=== PATIENT | male | born 1945 | race Caucasian/White ===

== ENCOUNTER → 2017-12-08 13:37 | Outpatient (CLI) | payer MEDICARE, OTHER, SELFPAY ==
--- NOTE | 2017-12-08 13:44 | RAD_ITS ---
STUDY: X-RAY - PELVIS AND BILATERAL HIPS REASON FOR EXAM: Male, 71 years old. Hip pain TECHNIQUE: Radiological exam, hip, bilateral, with pelvis when performed; 3-4 views COMPARISON: None. FINDINGS: There is a non-specific bowel gas pattern. Normal visualized soft tissue structures. Degenerative findings in the lumbar spine. Stool throughout the colon. Normal bilateral iliac wings, sacroiliac joints and visualized sacrum. Normal bilateral superior and inferior pubic rami. Normal pubic symphysis. Normal bilateral ischial tuberosities. Normal visualized right femoral head. There is osteoarthritic spur formation of the right acetabular rim. There is mild articular joint space narrowing of the right hip. Normal visualized left femoral head. There is osteoarthritic spur formation of the left acetabular rim. There is mild articular joint space narrowing of the left hip. RAD/Hips B/L min 2 views w/ Pelvis IMPRESSION: Degenerative findings of the hips. Electronically Signed: Ozzy Daugherty MD at 18:29 EST , Service support ,
== END ==
PROVIDERS: Family Provider Internal Medicine; PCP Internal Medicine; Visit Provider Anesthesiology Pain Medicine
DX: M25.552 Pain in left hip (principal); M25.551 Pain in right hip
CPT/HCPCS: 73521

== ENCOUNTER 2018-04-10 13:12 | Emergency (ER) | payer MEDICARE, OTHER, SELFPAY ==
[2018-04-10 13:15] VITALS: BP 155/91; PULSE 93; RESP 17; TEMP 36.8; O2SAT 96; BMI 38.4
--- NOTE | 2018-04-10 14:19 | EKG12_ITS ---
Test Reason : WEAKNESS Blood Pressure : / mmHG Vent. Rate : 093 BPM Atrial Rate : 093 BPM P-R Int : 172 ms QRS Dur : 082 ms QT Int : 338 ms P-R-T Axes : 058 034 019 degrees QTc Int : 420 ms Normal sinus rhythm Normal ECG Confirmed by CARMEN ALLEN, LOVE ([id number]), advertising editor JOHNATHON REYNA ([id number]) on 04/12/2018 3:34:42 PM Referred By: VICENTE Confirmed By:LOVE MORALES MD
--- NOTE | 2018-04-10 14:25 | RAD_ITS ---
STUDY: X-RAY CHEST REASON FOR EXAM: Male, 72 years old. Increased weakness and fatigue for 3 days. TECHNIQUE: Single AP portable view of the chest. COMPARISON: Comparison is made with prior study dated June 01, 2015. FINDINGS: EKG electrodes are seen. The lungs are clear and expanded. There is no demonstrated pleural abnormality. There is moderate cardiac enlargement. Normal mediastinum and hedy. Normal visualized pulmonary arteries. There is atherosclerotic tortuosity of the aortic arch and descending thoracic aorta. There are diffuse degenerative changes of the visualized thoracic spine. Normal visualized ribs, clavicles, and shoulders. There is no demonstrated abnormality of the visualized soft tissue structures of the upper abdomen. RAD/Chest 1 View (Portable) IMPRESSION: Cardiomegaly. Electronically Signed: Suman Evans MD at 14:53 EDT Tel [phone], Service support ,
[2018-04-10 14:41] LABS: Absolute Neutrophil Count 12.3 X10^3/uL (2.0-7.7); Basophil# 0.04 X10^3/uL; Basophil% 0.3 % (0-1); Eosinophil# 0.33 X10^3/uL; Eosinophils% 2.1 % (0-5); Hematocrit 41.1 % (40-54); Lymphocyte % 8.9 % (19-41); Mean Corp Hgb Conc 34.1 g/gl (32-36); Mean Corpuscular Volume 94.1 fL (80-94); Mean Platelet Vol. 10.9 fl (6.2-12.0); Monocyte# 1.58 X10^3/uL; Monocyte% 10.1 % (0-10); Neutrophil # 12.26 X10^3/uL (2.7-7.7); Neutrophil % 78.3 % (47-70); Platelet Count 237 K/mm3 (150-450); RBC Distribution Width CV 12.2 % (11.6-14.6); RBC Distribution Width SD 41.6 fl (35.1-43.9); Red Blood Count 4.37 M/mm3 (4.6-6.2); White Blood Count 15.7 K/mm3 (4.4-11.0)
[2018-04-10 14:42] LABS: Differential Indicated SCAN CRITERIA MET; POSITIVE COUNT NO; POSITIVE DIFFERENTIAL YES; POSITIVE MORPHOLOGY NO
[2018-04-10] MEDS: 0.9% Normal Saline 1,000 ML 1000 ML IV (14:46)
[2018-04-10 14:51] LABS: Anion Gap 5 (5-15); BUN 18 mg/dL (7-18); BUN/Creat Ratio 17.3 RATIO (10-20); Calcium,Total 8.5 mg/dL (8.5-10.1); Chloride 103 mmol/L (98-107); Creatinine, Serum 1.04 mg/dL (0.70-1.30); EST Glomerular Filtration Rate 75 mL/min (>60); Est Glom Filt Rate - Afr Amer 91 mL/min (>60); Estimated Creatinine Clearance 66.09 ml/min; Glucose 102 mg/dL (74-106); Potassium 3.8 mmol/L (3.5-5.1); Sodium Level 134 mmol/L (136-145)
[2018-04-10 15:20] VITALS: BP 161/86; PULSE 92; RESP 23; O2SAT 96
--- NOTE | 2018-04-10 15:30 | RAD_ITS ---
STUDY: X-RAY CHEST REASON FOR EXAM: Male, 72 years old. 3 day history of weakness. TECHNIQUE: Lateral view. COMPARISON: Comparison is made with prior study done earlier today. FINDINGS: Mild increased markings in the lingular segment of the left upper lobe. There is no demonstrated pleural abnormality. Cardiomegaly. There are degenerative changes of the visualized thoracic spine. Normal visualized ribs, clavicles, and shoulders. RAD/Chest 1 View (Portable) IMPRESSION: Increased markings in the lingular segment of the left upper lobe. Follow-up is recommended. Electronically Signed: Suman Evans MD at 15:47 EDT Tel [phone], Service support ,
[2018-04-10 15:48] LABS: Squamous Epithelial Cells - UA 0 SEEN /hpf (0-5)
[2018-04-10 15:52] LABS: Color, Urine Yellow (Yellow); Glucose, Dipstick Normal (Normal); Ketone-Dipstick 5 mg/dl (Negative); Leukocyte Esterase-Dipstick 25 /ul (Negative); Nitrite-Dipstick Negative (Negative); Occult Blood-Urine 10 /ul (Negative); Protein-Dipstick 30 mg/dl (Negative); Urine Bilirubin Dipstick Negative (Negative); Urine Clarity Clear (Clear); Urine Urobilinogen 4 mg/dl (Normal)
[2018-04-10 16:07] LABS: Bacteria 1+ /hpf (None Seen); Mucous, Urine 2+ /hpf (<or=2+); Red Blood Cells-Urine 0-5 SEEN /hpf (0-5); White Blood Cells 0-5 SEEN /hpf (0-5)
[2018-04-10 16:11] VITALS: BP 150/87; PULSE 90; RESP 19; O2SAT 96
--- NOTE | 2018-04-10 16:19 | ED.DCSUM_ITS ---
- ER Visit Summary Date of Service: 04/10/18 Chief Complaint: Weakness History of Present Illness: The patient is a [address] Jovel. Patient reports that over the past 2 days that he has had gradually increasing weakness. He reports he has a nonproductive cough. No fever or chills. He did have a night sweats 2 nights ago. Ports that he has felt mildly short of breath for the past 3 days. It is moderate with ambulation. He is not having shortness of breath now. He denies any wheezing or chest pain. Patient reports he has lower abdominal pain during the active sitting up only. He denies any other abdominal pain. No nausea, vomiting, or diarrhea. No dysuria or frequency. He reports that he has part of one when asked about a headache. Physical Examination: Vitals: Stable. Afebrile. General: Well-nourished and well-developed. Head: Normocephalic atraumatic. Neck: Supple, no lymphadenopathy. No JVD. Nontender. Cardiovascular: Regular rate and rhythm. No murmurs. Respiratory: No respiratory distress. Clear to auscultation bilaterally. Abdominal: Soft, nontender, nondistended, normal bowel sounds. No guarding, rebound, or peritoneal signs. Back: Nontender. Extremities: Nontender, no edema. Skin: Normal color, no rash. Neurologic: Alert and oriented ?3. Cranial nerves II through XII are intact. Normal strength and sensation. Psych: Normal affect. Test Results: EKG is sinus at 93 with T-wave inversion in lead III. This is unchanged from 2015. Troponin is negative. Chem-7 is more for sodium 134. CBC is more for white count of 15.7 with 78 segmented neutrophils and 9 lymphocytes. Chest x-ray shows increased markings only irregular segment of the left upper lobe. Urinalysis is negative. Emergency Department Course and Treatment: Patient is resting comfortably and would like to go home. He is treated with Levaquin p.o. Treatment Plan: Patient will be discharged on Levaquin. Instructed to follow- up with Dr. Jovel in 5-7 days for repeat exam. Return to the emergency department for any worsening symptoms. Disposition: To home in improved and stable condition. Impression: 1. Pneumonia, community-acquired. This note was generated with [employer] software. It may contain incorrect words, spelling, and punctuation that were not noted in review of the chart prior to signing ED Disposition - Plan for ED Patient: Chief Complaint: Weakness Instructions: ED Pneumonia Adult Prescriptions: Levofloxacin [Levaquin] 750 mg PO DAILY #6 tablet Referrals: Megan Jovel MD [Primary Care Provider] - 5-7 Days
[2018-04-10] MEDS: levoFLOXacin 750 MG Tablet PO (16:48)
[2018-04-10 16:54] VITALS: BP 158/87; PULSE 90; RESP 24; O2SAT 95
[2018-04-11 09:24] LABS: Pathologist Review Reviewed
== END 2018-04-10 16:55 | disposition home or self-care (01) ==
LOC: ED 14:50
PROVIDERS: Emergency Provider Emergency Medicine; Family Provider Internal Medicine; PCP Internal Medicine
DX: J18.9 Pneumonia, unspecified organism (principal); R51 Headache; R10.30 Lower abdominal pain, unspecified; I10 Essential (primary) hypertension; M54.9 Dorsalgia, unspecified; G89.29 Other chronic pain; Z79.82 Long term (current) use of aspirin; Z79.899 Other long term (current) drug therapy
CPT/HCPCS: 71045; 80048; 81001; 84484; 85025; 93005; 96360; 96361; 99285; J7030

== ENCOUNTER 2018-05-05 11:06 | Emergency (ER) | payer MEDICARE, OTHER, SELFPAY ==
[2018-05-05 11:07] VITALS: BP 145/25; PULSE 87; RESP 24; TEMP 36.8; O2SAT 98
--- NOTE | 2018-05-05 11:46 | EKG12_ITS ---
Test Reason : Blood Pressure : / mmHG Vent. Rate : 079 BPM Atrial Rate : 079 BPM P-R Int : 170 ms QRS Dur : 094 ms QT Int : 364 ms P-R-T Axes : 044 028 030 degrees QTc Int : 417 ms Normal sinus rhythm Normal ECG Confirmed by LOVE MORALES MD ([id number]), assignment editor JOHNATHON REYNA ([id number]) on 05/09/2018 1:51:31 PM Referred By: CINTHYA Confirmed By:LOVE MORALES MD
--- NOTE | 2018-05-05 11:47 | RAD_ITS ---
STUDY: X-RAY - PELVIS AND LEFT HIP REASON FOR EXAM: Male, 72 years old. Increasing left hip pain following a recent fall. TECHNIQUE: Radiological exam, hip, unilateral, with pelvis when performed; 2 or 3 views. COMPARISON: Comparison is made to prior examination dated December 08, 2017. FINDINGS: There is a non-specific bowel gas pattern. Normal visualized soft tissue structures. There is narrowing with cortical sclerosis and osteophyte formation of the sacroiliac joint consistent with degenerative osteoarthritic changes. Normal bilateral superior and inferior pubic rami. Normal pubic symphysis. Normal bilateral ischial tuberosities. Normal visualized femoral head. There is osteoarthritic spur formation of the acetabular rim. There is moderate articular joint space narrowing of the hip. RAD/Hip 2-3 Views with Pelvis IMPRESSION: Degenerative changes. No fracture is seen. Electronically Signed: Suman Evans MD at 12:48 EDT Tel [phone], Service support ,
--- NOTE | 2018-05-05 11:48 | ED.VISSUMM ---
- ER Visit Summary Date of Service: 05/05/18 Chief Complaint: Shortness of breath and recent fall with left hip pain History of Present Illness: The patient is a 72 M past medical history of osteoarthritis, depression hypertension and high cholesterol. Patient has no history of coronary disease or underlying lung disease. states for about a year he has exertional shortness of breath. No exertional chest pain. Patient states because he has bad arthritis in both hips and knees when he walks he is more pain and he feels short of breath because of that. He said if he does not exert himself or in pain is not have any shortness of breath. He denies any type of chest pain. No history of DVT or PE. No travel, surgery or mobilization. No hemoptysis. No calf pain or swelling. He has no underlying cardiac history he does not believe he is ever had a cardiac cath and cannot remember any stress test. He is a non-smoker. He states his symptoms have not changed or gotten worse over the last year. Also recently he fell down steps within the last week. Injuring his left hip. Said he had outpatient x-rays done at the [facility] which were reportedly negative. States she is having continued left hip pain is not getting any better. Is able to ambulate. Denies any LOC head or neck injury with the fall. Physical Examination: Vital signs are stable afebrile. Pulse ox 90% on room air no signs of hypoxia. H EENT exam unremarkable. No signs of traumaor skull. Neck nontender. Trachea midline. No JVD. Lungs clear to auscultation bilaterally. Heart regular rate and rhythm no murmur. Chest wall nontender. Abdomen is soft and nontender. Normal bowel sounds no peritoneal signs. Patient is moving all 4 extremities. They are neurovascularly intact. There are no deformities. Neurologically he is awake and alert with no focal motor or sensory deficits. Lower extremities have no calf tenderness or edema. Back exam is nontender. Specifically left hip has mild tenderness posterior laterally to deep palpation. There is no deformity. No external rotation or shortening. He has normal range of motion Test Results: An age [age]. Electrolytes unremarkable. Normal creatinine and gap. Troponin normal. EKG sinus rhythm rate is 79 with no unchanged from EKG from March. Chest x-ray borderline cardiomegaly otherwise no acute process. Read both by myself the radiologist. Pelvis and left hip x-ray showed no fracture on 3 views. Again read both by myself the radiologist. Emergency Department Course and Treatment: Patient will undergo a cardiac workup even though clinically the dyspnea may be secondary to pain when he ambulates. Also x-rays of his pelvis and hip. Treatment Plan: Repeat exam patient is doing well at 1310. Exam is unchanged. He and are comfortable with him being discharged home. We did discuss the possibility of an outpatient stress test. Disposition: Discharge Impression: Acute exertional dyspnea of uncertain etiology. Acute fall with left hip contusion This note was generated with [employer] dictation software. It may contain incorrect words, spelling, and punctuation that were not noted in review of the chart prior to signing ED Disposition - Plan for ED Patient: Chief Complaint: Shortness of Breath Referrals: Megan Jovel MD [Primary Care Provider] -
[2018-05-05 12:04] LABS: Absolute Lymphocyte Count 0.98 X10^3/ul (0.83-4.51); Absolute Neutrophil Count 10.4 X10^3/uL (2.0-7.7); Basophil# 0.01 X10^3/uL; Basophil% 0.1 % (0-1); Hematocrit 43.1 % (40-54); Hemoglobin 14.8 g/dl (13.0-16.5); Lymphocyte # 0.98 X10^3/ul (4.0); Lymphocyte % 8.2 % (19-41); Mean Corp Hgb Conc 34.3 g/gl (32-36); Mean Corpuscular Volume 93.1 fL (80-94); Mean Platelet Vol. 10.3 fl (6.2-12.0); Monocyte# 0.54 X10^3/uL; Monocyte% 4.5 % (0-10); Neutrophil # 10.39 X10^3/uL (2.7-7.7); Neutrophil % 87.1 % (47-70); Platelet Count 207 K/mm3 (150-450); RBC Distribution Width CV 12.2 % (11.6-14.6); RBC Distribution Width SD 41.2 fl (35.1-43.9); Red Blood Count 4.63 M/mm3 (4.6-6.2); White Blood Count 11.9 K/mm3 (4.4-11.0)
[2018-05-05 12:19] LABS: Anion Gap 8 (5-15); BUN 25 mg/dL (7-18); BUN/Creat Ratio 21.2 RATIO (10-20); Calcium,Total 8.9 mg/dL (8.5-10.1); Chloride 108 mmol/L (98-107); Creatinine, Serum 1.18 mg/dL (0.70-1.30); EST Glomerular Filtration Rate 65 mL/min (>60); Est Glom Filt Rate - Afr Amer 78 mL/min (>60); Estimated Creatinine Clearance 96.79 ml/min; Glucose 106 mg/dL (74-106); Potassium 4.1 mmol/L (3.5-5.1); Sodium Level 141 mmol/L (136-145)
[2018-05-05 12:24] LABS: POSITIVE COUNT NO; POSITIVE DIFFERENTIAL NO; POSITIVE MORPHOLOGY NO
--- NOTE | 2018-05-05 12:25 | RAD_ITS ---
STUDY: X-RAY CHEST REASON FOR EXAM: Male, 72 years old. Chest pain. TECHNIQUE: Single AP portable view of the chest. COMPARISON: Comparison is made with prior study dated April 10, 2018. FINDINGS: EKG electrodes are seen. The lungs are clear and expanded. Mild elevation of the right hemidiaphragm. There is no demonstrated pleural abnormality. There is moderate cardiac enlargement. Normal mediastinum and hedy. Normal visualized pulmonary arteries. There is atherosclerotic tortuosity of the aortic arch and descending thoracic aorta. There are degenerative changes of the visualized thoracic spine. Normal visualized ribs, clavicles, and shoulders. There is no demonstrated abnormality of the visualized soft tissue structures of the upper abdomen. RAD/Chest 1 View (Portable) IMPRESSION: Cardiomegaly. The lungs are clear. Electronically Signed: Suman Evans MD at 12:45 EDT Tel [phone], Service support ,
[2018-05-05] MEDS: HYDROcodone Bitartrate/Apap 5/325 Tablet PO (12:45)
--- NOTE | 2018-05-05 13:11 | ED.DEP ---
ED Disposition - Plan for ED Patient: Disposition: Home or Assisted Living Chief Complaint: Shortness of Breath Instructions: ED Contusion Hip, ED Dyspnea Shortness of Breath Referrals: Megan Jovel MD [Primary Care Provider] - As soon as possible Additional Instructions: Call follow-up with your doctor for further evaluation of the intermittent exertional shortness of breath. Today on your labs are basically unremarkable. Your hip and pelvis x-ray shows no fracture. If the pain continues follow-up with the primary care physician they can get a CAT scan or MRI of your hip but at this time there are no signs of a fracture.
[2018-05-05 13:16] VITALS: PULSE 70; RESP 16; O2SAT 98
[2018-05-05 13:24] VITALS: PULSE 75; RESP 14; O2SAT 97
== END 2018-05-05 13:32 | disposition home or self-care (01) ==
PROVIDERS: Emergency Provider Emergency Medicine; Family Provider Internal Medicine; PCP Internal Medicine
DX: R06.00 Dyspnea, unspecified (principal); S70.02XA Contusion of left hip, initial encounter; W10.9XXA Fall (on) (from) unspecified stairs and steps, initial encounter; Y93.9 Activity, unspecified; Y92.9 Unspecified place or not applicable; Y99.9 Unspecified external cause status; M16.0 Bilateral primary osteoarthritis of hip; M17.0 Bilateral primary osteoarthritis of knee; I10 Essential (primary) hypertension; E78.00 Pure hypercholesterolemia, unspecified; F32.9 Major depressive disorder, single episode, unspecified; Z79.82 Long term (current) use of aspirin; Z79.52 Long term (current) use of systemic steroids; Z79.899 Other long term (current) drug therapy
CPT/HCPCS: 71045; 73502; 80048; 84484; 85025; 93005; 99285; A4216

== ENCOUNTER → 2018-06-07 06:36 | Outpatient (CLI) | payer MEDICARE, OTHER, SELFPAY | PROVIDERS: Family Provider Internal Medicine; PCP Internal Medicine; Visit Provider Anesthesiology Pain Medicine | DX: M54.9 Dorsalgia, unspecified (principal); M79.606 Pain in leg, unspecified | CPT/HCPCS: 72148 ==

== ENCOUNTER → 2019-12-24 13:05 | Outpatient (CLI) | payer MEDICARE, OTHER, SELFPAY ==
--- NOTE | 2019-12-24 13:12 | MRI_ITS ---
STUDY: MRI LUMBAR SPINE WITHOUT CONTRAST REASON FOR EXAM: Male, 74 years old. Chronic back and left leg pain. TECHNIQUE: Standardized fat and water weighted pulse sequences were obtained in the sagittal and axial planes. COMPARISON: MRI LUMBAR SPINE-June 07, 2018 FINDINGS: Vertebrae, Alignment and Curvature Vertebrae: There is anterior endplate spondylosis at the T11-12, T12-L1, L3-4 and L4-5 levels. Alignment: There is mild retrolisthesis of the L3 vertebra in relationship to the L4 vertebra. There is minimal anterolisthesis of the L4 vertebra relationship to the L5 vertebra, further discussed below. Curvature: Normal lordosis. No scoliosis. Thoracic Cord (visualized distal) / Conus Medullaris Normal. Terminates at the at the superior endplate of the L1 vertebra. Disc Space Levels N.B.: Normal level statement indicates: Normal endplates; disc height, signal and morphology; facet joints; central canal, lateral recesses, and intervertebral neuroformina. T11-12: (Imaged only in the sagittal plane). There is disc desiccation, preservation of the disc height with bridging anterior endplate spondylotic spur formation. Normal central canal and intervertebral neural foramina. T12-L1: (Imaged only in the sagittal plane). There is anterior endplate spondylosis. Normal disc hydration and height without disc displacement. Normal central canal and intervertebral neural foramina. L1-L2: Normal disc hydration and height with anterior endplate spondylosis. There is minimal facet arthrosis. Normal central canal and intervertebral neural foramina. L2-L3: Normal. L3-L4: There is disc desiccation, moderate to severe loss of the disc height posteriorly, with a 5 mm L3 retrolisthesis in relationship to the L4 vertebra. There has been partial autolysis of the previously demonstrated large left-sided foraminal to extraforaminal disc extrusion, demonstrated on the prior examination of June 07, 2018. There is however a a small residual posterior lateral to foraminal disc extrusion, which is significantly smaller than previously demonstrated disc herniation. The residual subligamentous extrusion measures approximately 4 mm in its AP dimension (axial T2 series 5, image 12), extending 5 mm along the inferior margin of the L3 vertebra within the intervertebral neural foramina. There is mild impingement upon the exiting left L3 nerve root (sagittal T2 series 2, images 3-4. There is bilateral facet arthrosis with facet hypertrophy and with infolding of ligamentum flavum producing a severe left subarticular lateral recess stenosis with neural impingement upon the descending left L4 nerve root and with a moderate central canal stenosis. There is central clumping of the cauda equina . The residual AP diameter of the central canal measures 8 mm. There is right-sided foraminal annular bulging producing retrodiscal foraminal narrowing but without neural impingement. L4-L5: There is disc desiccation, preservation disc height, severe bilateral facet arthrosis with osseous and ligamentous hypertrophy and with a 3 mm retrolisthesis of the L4 vertebra with circumferential annular bulging. The combined processes have produced mild bilateral foraminal and severe left subarticular lateral recess and moderate central canal stenoses (axial T2 series 5, image 7), producing neural impingement upon the descending left L5 nerve root. The AP diameter of the central canal measures 6 mm. L5-S1: Normal disc hydration and height with minimal annular bulging. There is moderate bilateral facet arthrosis (right greater than left), but without definitive neural impingement. Sacral Alae: Normal. Retroperitoneum and Paraspinal Structures Kidneys: Partially imaged with no demonstrated abnormality. Aorta: Normal. Inferior Vena Cava: Normal. Lymph Nodes: None visualized. Muscles (Paraspinal): Normal. MRI/Spine Lumbar (Routine) IMPRESSION: 1. T11-12, T12-L1 anterior endplate spondylosis. 2. Significant autolysis of the previously demonstrated left-sided L3-4 foraminal disc extrusion, however there is a residual smaller disc extrusion, combined with bilateral facet arthroses, which is producing mild impingement upon the exiting left L3 nerve root with severe left subarticular lateral recess and moderate central canal stenosis with neural impingement upon the descending left L4 nerve root. 3. L4 minimal retrolisthesis with severe bilateral facet arthrosis producing moderate central canal and severe left subarticular lateral recess stenosis with neural impingement upon the descending left L5 nerve root. Electronically Signed: Bo Strong DO at 15:18 EST Tel , Service support ,
== END ==
PROVIDERS: PCP Internal Medicine; Referring Provider Anesthesiology Pain Medicine; Visit Provider Anesthesiology Pain Medicine
DX: M54.9 Dorsalgia, unspecified (principal); M79.606 Pain in leg, unspecified
CPT/HCPCS: 72148

== ENCOUNTER → 2020-06-03 09:29 | Outpatient (CLI) | payer MEDICARE, OTHER, SELFPAY ==
--- NOTE | 2020-06-03 09:30 | RAD_ITS ---
STUDY: X-RAY - LUMBAR SPINE REASON FOR EXAM: Male, 74 years old. LBP TECHNIQUE: 4 view(s) of the lumbar spine were obtained including flexion and extension views. COMPARISON: None FINDINGS: Normal lumbar lordosis. There is no substantial scoliosis. Minimal anterior listhesis of L4 on L5. There is minimal reduction on the extension views. There is multilevel endplate spondylosis of the lumbar vertebrae. There is multi-level degenerative disc disease with multi-level disc space narrowing. Facet joint osteoarthritis. The soft tissue structures are unremarkable. RAD/L/S Spine Min 4 Views IMPRESSION: Degenerative changes of the spine, as detailed above. Minimal anterior listhesis of L4 on L5. Minimal reduction on the extension views. Electronically Signed: Suman Evans, at 11:06 EDT , Service support ,
== END ==
PROVIDERS: PCP Internal Medicine; Referring Provider Orthopaedic Surgery; Visit Provider Orthopaedic Surgery
DX: M54.5 Low back pain (principal)
CPT/HCPCS: 72110

== ENCOUNTER 2020-08-05 14:30 | Outpatient (RCR) | payer MEDICARE, OTHER, SELFPAY ==
--- NOTE | 2020-07-08 15:31 | HP.PTEVAL_ITS ---
Patient's Visit Information ROSS BOLIVAR is a 74 year old M referred to Physical Therapy by Dr. Shaista Lawler MD with a diagnosis of BACK PAIN. Date of Evaluation: 07/08/20 Physical Therapist: Brad Johnson, PT, Cert MDT, OCS - Visit Plan Frequency: 2x /Week Duration: 8WEEKS Plan: PT INTERVETIONS AQUATIC THERAPY FOR DLS ,LE FLEXABLITY/STRENGTHENING,POSTURAL EX'S - Subjective This 74 y/o male presents to physical therapy with back pain.Patient has had back pain many years 25 years. No specific reason. Patient has h/o receiving epidural injections by pain management for past 10 years . Last injection 3 weeks which didnt help. Seen DR Lawler recommended PT . MRI showed extrusion L3-4 with severe DDD and anteriolothesis,L5-S1. Patient has seen chiropractor many years. Patient has had x-rays. Patient had fall 2 years ago. Location pain sym mtrical lumbar and occassional anterior thigh.C/O occasional parathesia/tingling left leg. Coughing/sneezing -. Bowel/bladder-.Aggraveting factors walking 2mins,standing ,bending ,lifing . Alleviating factors sitting. 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 Patient symptoms affects QOL. SOCAIL: . VOCATION: retired - Pain Bilateral Pain Intensity (Out of 10): 3 Pain Intensity Range: 10 Comment: worse 10/10 - Objective POSTURE: mild foward posture. GAIT: reciprocal pattern antalgic gait slow paola. SYMMTTRIES: align. NEURO: denies parathesia/tingling,reflexes L3-4,L4-5,L5-S 1/3. FLEXABLITY: HAMS mild tight. MMT: quads/hams 4/5,hip flexion ,abduction 4-/5,ankle 4/5. LUMBAR ROM: flexion mod loss,extension mod/severe loss,side glides mod loss - Special Tests L/S Slump test left side: Negative L/S Slump test right side: Negative L/S Left Straight Leg Raise: Negative L/S Right Straight Leg Raise: Negative - Goals Goal 1:: Patient to be I with Aquatic therapy Goal Time Frame: 6-8 Weeks Goal 2:: Patient decrease lumbar pain by 40% or > to improve gait and function. Goal Time Frame: 6-8 Weeks Goal 3:: Patient to improve lumbar ROM for function of recovery Goal Time Frame: 6-8 Weeks Goal 4:: Patient to improve back owestry score by 5 points or > to improve QOL. Goal Time Frame: 6-8 Weeks Goal 5:: Pateint able to walk further distances > than 5 mins Goal Time Frame: 6-8 Weeks - Rehabilitation Potential Physical Therapy Diagnosis: Patient has back pain with severe stenosis and larger extrustion and DDD L3-4 with poor ROM ,pain ,weakness inablity to walk > than 2 mins without having severe back pain thus from skilled PT Rehabilitation Potential: Fair - Anticipated Interventions Patient/Client Instruction: Educate patient on: Condition, Plan of Care For the Purpose of:: To decrease pain, To increase ROM, To improve muscle performance and motor function, To increase tolerance to activity/condition/position, To improve performance and independence with ADL's, To improve ability of physical actions for home/community/work/leisure, To improve gait and locomotor functions, To improve health of tissue, To decrease soft tissue restriction, To increase flexibility/ROM, To improve endurance, To improve ability to perform tasks related to life management Therapeutic Exercise to Include: Strength training, Body mechanics, Postural training, Flexibilty training, In an aquatic setting, Active ROM, Dynamic Lumbar Stabilization For the Purpose of:: To decrease pain, To increase ROM, To improve muscle performance and motor function, To improve ability to perform ADL's, To increase tolerance to activity/condition/position, To decrease level of supervision to perform tasks, To improve ability of physical actions for home/community/work/leisure, To decrease soft tissue restriction, To increase flexibility/ROM Thank you for the opportunity to evaluate your patient. For Medicare and Medicare HMO plans, please review the plan of care and approve it. It will need to be FAXED BACK to us at [phone] for Medicare purposes. For Medicare only, by signing this I certify the plan of care. Please let me know if there are questions or concerns regarding this plan of care. Physician Signature: Date:
--- NOTE | 2020-11-14 12:36 | HP.PTDCNRP_ITS ---
ROSS BOLIVAR was seen in my office for initial evaluation on 07/08/20. The following Plan of Care was established for this patient: Initial Frequency: 2x /Week Initial Duration: 8WEEKS Patient/Client Instruction: Educate patient on: Condition, Plan of Care For the Purpose of:: To decrease pain, To increase ROM, To improve muscle performance and motor function, To increase tolerance to activity/condition/position, To improve performance and independence with ADL's, To improve ability of physical actions for home/community/work/leisure, To improve gait and locomotor functions, To improve health of tissue, To decrease soft tissue restriction, To increase flexibility/ROM, To improve endurance, To improve ability to perform tasks related to life management Therapeutic Exercise to Include: Strength training, Body mechanics, Postural training, Flexibilty training, In an aquatic setting, Active ROM, Dynamic Lumbar Stabilization For the Purpose of:: To decrease pain, To increase ROM, To improve muscle performance and motor function, To improve ability to perform ADL's, To increase tolerance to activity/condition/position, To decrease level of supervision to perform tasks, To improve ability of physical actions for home/co mmunity/work/leisure, To decrease soft tissue restriction, To increase flexibility/ROM This patient was last seen in our office . Pertinent comments regarding their Physical therapy will appear below: Patient was seen for PT for Aquatic Therapy for back pain for 5 visits focusing on DLS ,postural ex's and flexablity. At this point I will be discontinuing this patient from physical therapy. I would be happy to see this patient again in the future if found appropriate by the physician. Thank you! Brad Johnson, PT, Cert MDT, OCS
== END 2020-08-05 19:00 | disposition home or self-care (01) ==
LOC: PT 14:30
PROVIDERS: PCP Internal Medicine; Referring Provider Orthopaedic Surgery; Visit Provider Orthopaedic Surgery
DX: M54.9 Dorsalgia, unspecified (principal)
CPT/HCPCS: 97113; 97162

== ENCOUNTER → 2021-05-19 12:22 | Outpatient (CLI) | payer MEDICARE, OTHER, SELFPAY ==
--- NOTE | 2021-05-19 12:23 | MRI_ITS ---
STUDY: MRI LUMBAR SPINE WITH AND WITHOUT CONTRAST REASON FOR EXAM: Male, 75 years old. LBP, bilat hip pain and leg pain LEFT and gt; RIGHT TECHNIQUE: Standardized fat and water weighted pulse sequences were obtained in the sagittal and axial planes. IV 24ml Dotarem was administered for the contrast portion of the examination. COMPARISON: MRI lumbar spine without contrast 12/24/2019. FINDINGS: T11-T12: (Sagittal only). Normal endplates. Mild disc space height narrowing. No ventral extradural defect. Normal central canal and bilateral intervertebral neural foramina. T12-L1: (Sagittal only). Normal endplates. Normal disc height, hydration and morphology. No ventral extra dural defect. Normal central canal and bilateral intervertebral neural foramina. Normal lumbar lordosis. There is no substantial scoliosis. Normal conus medullaris that terminates at the T12-L1 disc level. L1-2: Normal endplates. Normal disc height, hydration and morphology. Normal bilateral facet joints. Normal central canal and bilateral lateral recesses. Normal bilateral intervertebral neural foramina. L2-3: Normal endplates. Normal disc height, hydration and morphology. Normal bilateral facet joints. Normal central canal and bilateral lateral recesses. Normal bilateral intervertebral neural foramina. L3-4: Normal endplates. Mild disc space height narrowing. Minimal degenerative retrolisthesis of L3 on L4. Moderate central canal stenosis diameter of 7 mm. This is unchanged. Normal bilateral lateral recesses. Mild to moderate bilateral degenerative facet hypertrophy. Mild stenosis of the left intervertebral neural foramen. Normal right intervertebral neural foramen. L4-5: Normal endplates. Normal disc height, hydration and pronounced central canal stenosis with an AP canal diameter of 5.5 mm. This is unchanged. Moderate pronounced left degenerative facet hypertrophy is unchanged. Mild right degenerative facet hypertrophy is unchanged. Mild stenosis of the bilateral intervertebral neural foramina are unchanged. L5-S1: Normal endplates. Normal disc height, hydration and morphology. Normal central canal surrounded by epidural lipomatosis. This is a tapered termination towards S2. Normal bilateral lateral recesses. Mild right degenerative facet arthropathy. Normal left facet joint. Normal bilateral intervertebral neural foramina. Normal visualized sacral ala. Normal visualized paraspinous soft tissue structures. There is mild contrast enhancement of the left L4-L5 degenerative inflammatory arthropathy. No intradural or extradural enhancing lesions. MRI/Spine Lumbar W/WO Contrast IMPRESSION: 1. Moderately pronounced central canal stenosis at L4-L5 disc level with an AP canal diameter of 5.5 mm is unchanged but there is enhancing moderately pronounced left inflammatory degenerative facet arthropathy. 2. Moderate central canal stenosis at L3-L4 disc level with an AP canal diameter of 7 mm, minimal degenerative retrolisthesis of L3 on L4, mild to moderate bilateral degenerative facet hypertrophy and mild stenosis of the left intervertebral neural foramen. This level is unchanged. 3. No MRI evidence of lumbar extruded disc fragment. 4. Electronically Signed: Pillo Pelaez MD at 13:10 EDT , Service support ,
[2021-05-19 13:06] LABS: CREATININE FINGERSTICK 1.3 mg/dL (0.70-1.30)
== END ==
PROVIDERS: PCP Nurse Practitioner Primary Care; Referring Provider Orthopaedic Surgery; Visit Provider Orthopaedic Surgery
DX: Z01.812 Encounter for preprocedural laboratory examination (principal); M54.5 Low back pain
CPT/HCPCS: 72158; A9575

== ENCOUNTER 2021-06-12 13:31 | Observation (INO) | payer MEDICARE, OTHER, SELFPAY ==
--- NOTE | 2021-06-09 13:29 | EKG12_ITS ---
Test Reason : PRE OP Blood Pressure : / mmHG Vent. Rate : 081 BPM Atrial Rate : 081 BPM P-R Int : 160 ms QRS Dur : 078 ms QT Int : 340 ms P-R-T Axes : 029 017 021 degrees QTc Int : 394 ms Normal sinus rhythm Low voltage QRS Confirmed by JAYNE ALLEN, ABRAHAM ([id number]), legal editor DEXTER AGUIRRE ([id number]) on 06/10/2021 10:10:46 AM Referred By: Uday Cook Confirmed By:ABRAHAM GODOY MD
[2021-06-09 14:24] LABS: Absolute Lymphocyte Count 1.83 X10^3/uL (0.83-4.51); Absolute Neutrophil Count 3.8 X10^3/uL (2.0-7.7); Basophil# 0.09 X10^3/uL; Basophil% 1.3 % (0-1); Eosinophil# 0.26 X10^3/uL; Eosinophils% 3.9 % (0-5); Hematocrit 41.2 % (40-54); Hemoglobin 13.9 g/dL (13.0-16.5); Lymphocyte # 1.83 X10^3/ul (0.83-4.51); Lymphocyte % 27.4 % (19-41); Mean Corp Hgb Conc 33.7 g/dL (32-36); Mean Corpuscular Hgb 32.1 pg (27.0-32.0); Mean Corpuscular Volume 95.2 fL (80-94); Mean Platelet Vol. 10.5 fl (6.2-12.0); Monocyte# 0.65 X10^3/uL; Monocyte% 9.7 % (0-10); NRBC Flagged by Analyzer 0 % (0-5); Neutrophil # 3.82 X10^3/uL (2.7-7.7); Neutrophil % 57.4 % (47-70); Platelet Count 207 K/mm3 (150-450); RBC Distribution Width CV 11.6 % (11.6-14.6); RBC Distribution Width SD 40.3 fl (35.1-43.9); Red Blood Count 4.33 M/mm3 (4.6-6.2); White Blood Count 6.7 K/mm3 (4.4-11.0)
[2021-06-09 14:34] LABS: Partial Thromboplast Time 27.4 Seconds (24.1-36.2); Prothrombin Time (Protime)PT. 12.6 SECONDS (11.7-14.9)
[2021-06-09 14:48] LABS: Anion Gap 5 (5-15); BUN 24 mg/dL (7-18); BUN/Creat Ratio 14.5 RATIO (10-20); Calcium,Total 8.9 mg/dL (8.5-10.1); Chloride 109 mmol/L (98-107); Creatinine, Serum 1.66 mg/dL (0.70-1.30); EST Glomerular Filtration Rate 43 mL/min (>60); Est Glom Filt Rate - Afr Amer 52 mL/min (>60); Glucose 116 mg/dL (74-106); Potassium 3.9 mmol/L (3.5-5.1); Sodium Level 139 mmol/L (136-145)
[2021-06-09 14:52] LABS: AST(SGOT) 21 U/L (15-37); Alanine Aminotransfer ALT/SGPT 30 U/L (16-61); Albumin, Serum 3.6 g/dL (3.2-5.0); Alkaline Phosphatase 102 U/L (45-117); Bilirubin, Direct 0.13 mg/dL (0.00-0.30); Globulin 3.3 g/dL (2.2-4.2); Magnesium 2.2 mg/dL (1.6-2.6); Protein, Total 6.9 g/dL (6.4-8.2)
[2021-06-09 15:26] LABS: HIV - WCH Non-Reactive (Nonreactive); Hepatitis B Surface Antibody Non-Reactive; Hepatitis C Antibody Non-Reactive (Nonreactive)
--- NOTE | 2021-06-10 16:07 | HP.PCM_ITS ---
History and Physical Date of Admission: 06/11/21 [facility] [id number] [phone] OFFICE VISITDate of Service: 05/15/21 MR#:[id number]:[id number]: ROSS BOLIVAR ARep #:[id number] Provider:Dr. Uday Cook DOAge/Sex: 75/M Location:[place]:Signed Intake Vital Signs 05/15/21 09:22 05/15/21 09:34 Height 5 ft 9 in BMI 0.2 Intake Visit Reasons: Lumbar spine Allergies No Known Allergies Allergy (Verified 05/15/21 09:33) Medications amlodipine 5 mg PO DAILY 07/05/15 [History Confirmed 05/15/21] aspirin 81 mg PO DAILY@0800 07/05/15 [History Confirmed 05/15/21] clonazepam 0.5 mg PO BID 07/05/15 [History Confirmed 05/15/21] gabapentin 100 mg PO DAILY 07/05/15 [History Confirmed 05/15/21] lisinopril 10 mg PO DAILY 07/05/15 [History Confirmed 05/15/21] sulindac 200 mg PO DAILY 07/05/15 [History Confirmed 05/15/21] duloxetine 60 mg PO DAILY 04/10/18 [History Confirmed 05/15/21] pravastatin 20 mg PO QHS 04/10/18 [History Confirmed 05/15/21] baclofen 5 mg tablet 5 mg PO DAILY 05/15/21 [History Confirmed 05/15/21] PFSH Medical History (Updated 05/15/21 @ 10:[address] Uday Cook DO) Appendicitis Hypertension Melanoma Social History (Updated 06/03/20 @ 12:[address] Shaista Lawler MD) Smoking Status: Never smoker HPI Lumbar spine Details: Parts of this documentation were recorded by a scribe, this documentation accurately reflects the service provided and the decisions made by me, Dr. Uday Cook DO 05/15/21 0920. ROSS BOLIVAR is a 75 year old M new patient for lumbar spine pain that radiates down his left leg usually stops at his knee. Patient states the longer he walks the worse the pain down his left side gets. Patient states the pain is the worst when he i walking and improves when he sits. Patient denies any popping or clicking in lumbar spine/ left hip. Patient was referred by Dr. Mello for a second a look. Patient has been receiving injections from [facility] for 4-5 years but they no longer do him any good. Patient states at first the injections were helping with his pain but do not any more. Patient has tried the following conservative treatments for six weeks or greater: [RICE, OTC NSAIDs, home exercises provided by a provider but there was no relief of pain, corticosteroid injections and oral corticosteroids that helped in the first few years but are now starting to wear off faster, healthcare specialist for awhile about 10 years ago but it got the the point that had stopped helping the pain, pain management techniques. Patient has found no relief and would like to further investigate their s/s. Therefore, will order a(n) [TEST/STUDY] to appropriately determine if [tx/sx] would be appropriate for the Gene is a most pleasant gentleman 75 years old who has a chief complaint of low back pain and pain that radiates down both legs. This has been coming on for a number of years. The epidural steroid injections are not very helpful anymore. He describes perfect neurogenic claudication. He walks for just a little bit and has to sit down because of his back pain and his leg pain increase. Once he rests for just a little bit sitting down the pain goes away and he goes through the cycle over and over again. He had an MRI scan in 2018 in 2019. He denies any bowel or bladder dysfunction. He denies history of unexplained weight loss night fever sweats or chills. On examination he has more pain with extension hardly any with flexion of his lumbar spine. He has good motor strength in all major muscle groups of both lower extremities. He has barely perceptible patellar reflexes bilaterally. Achilles reflexes are absent bilaterally. He has no long tract signs. Clonus is absent Babinski's are downgoing. I reviewed the old MRI scans 1 from 2018 one from 2019. It is noted that he had a rather large far lateral herniation at L3-4 on the left side in 2018. The herniation which was much smaller 2 years later in the 2019 MRI scan. 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 The MRI does show severe spinal stenosis at L45 and a little less severe at L3-4. I told him because it has been over a year since his last MRI scan that we will need a new MRI scan. I told him that he might consider surgical intervention perhaps it is up to him as it would preserve simply be elective in nature. I will review the new MRI scan and make further recommendations at that time. Coding Level of Care Code Off vis,new,level 3 Diagnoses Spinal stenosis at L4-L5 level M48.06
[2021-06-11] VITALS (17 sets, daily range): BP systolic 97–141; BP diastolic 62–84; PULSE 71–105; RESP 12–20; TEMP 36.3–36.8; O2SAT 6–100; BMI 39.4
[2021-06-11] MEDS: Acetaminophen 500 MG Tablet 1000 MG PO (06:28)
[2021-06-11] MEDS: Lactated Ringers 1,000 ML 100 ML IV ×5 (06:30→18:07)
[2021-06-11 07:16] LABS: Bedside Glucose 123 mg/dL (70-110)
--- NOTE | 2021-06-11 07:30 | RAD_ITS ---
STUDY: X-RAY - LUMBAR SPINE REASON FOR EXAM: Male, 75 years old. ERAS, LUMBAR DECOMPRESSION, L3-4, L4-5 TECHNIQUE: Single lateral view(s) of the lumbar spine were obtained. COMPARISON: None FINDINGS: The metallic marker is seen overlying the posterior aspect of the L4-L5 disc space level. RAD/Spine 1 View Any Level IMPRESSION: The localizer is seen along the posterior to the L4-L5 disc space. Electronically Signed: Suman Evans MD at 12:20 EDT , Service support ,
--- NOTE | 2021-06-11 07:30 | DISC_PTH ---
PATIENT: ROSS BOLIVAR LOC: MS3 U#:[id number] AGE/SX: 75/M ROOM: MD317 RE06/12/[address]: Dr. Uday Cook DO : 1945 BED: 1 DIS: 06/13/2021 SPEC #: [id number] RECD: 06/11/21 11:38 STATUS: CARLOS REHilary #: [id number] VADIM: 06/11/21 07:[address]: Uday Cook DEPT: SURGICAL PATHOLOGY RECD BY: Ely Hayes ENTERED: 06/11/21 12:48 SP TYPE: DISC OTHR DR: BASIL Wiggins Tissues: Intervertebral disc, NOS Procedures: Decalcification bone/plaque Surgery Specimen Level III HEADER OPERATION: ERAS, lumbar decompression L3-L4 and L4-L5 PRE-OP DIAGNOSIS: Spinal stenosis at L4-L5 level TISSUE SUBMITTED: Bone and tissue, lumbar L3-L4 and L4-L5 MICROSCOPIC DIAGNOSIS Bone and tissue L3-L4 and L4-L5: Pieces of fibrocartilaginous tissue and bone with reactive changes. TORITO:tommie 06/15/2021 MICROSCOPIC DESCRIPTION Slides are reviewed. GROSS DESCRIPTION Received in fixative is one container labeled with the patient's name and designated bone and tissue, lumbar L3-L4 and L4-L5. The specimen consists of multiple pieces of bone and noble, indurated tissue that in aggregate measure 8 x 7 x 2 cm. Cash Manager tissue is submitted in two cassettes after decalcification. / TORITO:tommie 06/11/21 TC:5 CPT: 44313, 59315
[2021-06-11] MEDS: Cefazolin 2 GM in 0.9% Normal Saline 100 ML IV (07:41)
[2021-06-11] MEDS: THROMBIN (RECOMBINANT) 20,000 UNIT VIAL 20000 UNIT TOPICAL (08:24)
--- NOTE | 2021-06-11 11:49 | OP.PCM_ITS ---
Report of Operation Date of Procedure: 06/11/21 Description of Surgical Findings:: Preoperative diagnosis: Severe spinal stenosis L4-5 and L3-4 Postoperative diagnoses: The same Procedures: #1 complete posterior decompression L4-5 CPT code 91300 #2 complete posterior decompression L3-4 CPT code 64111 Surgeon: Dr. Cook assistant to the president: Verona THOMAS Anesthesia: General endotracheal anesthesia administered by [facility] The estimated blood loss: 300 cc Drains: Medium Hemovac Complications: None Procedure: Patient was taken to the OR where he was placed under general endotracheal anesthesia. A Martin catheter was inserted. Neuro monitoring plac ed all their leads on the patient. We then turned the patient over onto the prone position on the Efra frame. Care was taken to protect his bony prominences his ulnar nerves of both elbows the wrist brachial plexus, the genitalia, and the cervical spine and facial features. The back was then prepped and draped in standard fashion. I then made a longitudinal incision centered over L4-5. Subcutaneous tissues were incised length of skin incision. I then opened the lumbar fascia to the left of the spinous processes using cautery and elevated the paravertebral muscles off the spinous process and lamina of L4 on the left side. An intraoperative x-ray was taken with a marker in place to confirm that it was indeed L4-5. This was then marked. I continued by extending the incision cephalad and then elevated the paravertebral muscles off the top of the L5 lamina all of the L4 lamina and the L3 lamina. Note that he had brisk bleeding even though we kept the pressure low throughout the operation. The left side was then packed then opened the opposite side in the same fashion elevating the paravertebral muscles off the lamina of 3 the lamina for and the top of the lamina of 5. Again bleeding was controlled with cautery. In addition we thoroughly irrigated with copious amounts of sterile saline every 10 to 15 minutes in the course of the case. The self-retaining super slide retractors were then entered. This gave us good access. Using double- action rongeurs I was able to remove the spinous process of L4 and the bottom of this problem L3 process likewise. I then used double-action rongeurs to thin down the lamina of 4 on each side and in the midline. I then elevated the ligamentum flavum off the underside of the lamina of L4 on both sides. I then began the laminectomy using 45 degree Kerrison rongeurs of different sizes I was able to perform the laminectomy on the right and the left. I then split the ligamentum flavum in the midline using a hockey-stick and sharp 15 blade. I then began removal of the ligamentum flavum on both sides. I removed them in their entirety as this was given him lateral recess stenosis in the lateral gutters. I finished the decompression on the right side from the left side of the patient and moved up to the L3 spinous process using double-action rongeurs that the spinous process likewise was removed all the way down to the lamina the lamina was thinned out with a double-action rongeurs. Brisk bone bleeding was controlled with bone wax. I then released the ligamentum flavum off the underside of the lamina of L3 on both sides and again using 45 degree Kerrison rongeurs laminectomy was carried out bilaterally. I remove the ligamentum flavum in the same fashion as I did the level below. For splitting in its midline and then using the Kerrisons to remove it in its lateral gutters to decompress the cauda equina. Completely decompressed the right side from the patient's left. At this point I moved to the opposite side of the table with my light and my cooling machine. Then finished the decompression on the left from the patient's right side. I was able to feel the foramina at both levels using a hockey-stick the cauda equina was completely decompressed at both levels. Again thorough irrigation was carried out frequently in the course of the case to prevent infection. We then placed an amnionic membrane on top of the dura to prevent adhesions in the future. Gelfoam was placed over the top of that. A medium Hemovac drain was then inserted. We then began closure. The lumbar fascia was reapproximated using #1 Vicryl in interrupted fashion with [id number] sutures. The subcutaneous tissues were then approximated in layers with 0 Vicryl and 2-0 Vicryl suture. The skin was then approximated using skin clips. Sterile dressings were then applied the drain was secured. The patient was then recovered in the OR moved to his hospital bed and taken to recovery in satisfactory condition. This interoperative summary on Fortino Moreno. This is Dr. Cook dictating.
[2021-06-11 12:27] LABS: Hepatitis A AB, Total Negative (Negative)
--- NOTE | 2021-06-11 14:28 | NURSING ---
pandemic documentation
--- NOTE | 2021-06-11 15:05 | CPS ---
Pt still sleepy from surgery, RN placed him on his own nasal CPAP but his SpO2 wouldn't stay in the 90's. R.T. bled in 6lpm O2 to his home CPAP and Sat is now 95%. Informed RN of this change and will wean O2 to off as tolerated to keep Sat >/=90%.
[2021-06-11] MEDS: Cefazolin 1 GM/50 ML BAG IV ×2 (16:00→23:23)
--- NOTE | 2021-06-11 16:22 | PCM.PN.BLA ---
Documented by User: BASIL Irvin 06/11/21 16:38 Progress Note Patient is a 75-year-old male who underwent a spinal decompression of the L3-L4 and L4-L5 with Dr. Cook today. Patient is currently in bed resting comfortably with CPAP on, no distress noted. Family at bedside. Patient reports 5 out of 10 pain to his back which patient reports is tolerable at this time Physical Exam Const alert, oriented x3 and no apparent distress HEENT normocephalic and head/scalp atraumatic Eyes conjunctivae normal and no scleral icterus Neck full ROM, supple and no JVD General: trachea midline Chest inspection of chest normal and palpation of chest normal Resp normal respiratory effort, normal air movement and clear to auscultation bilaterally Cardio regular rate, regular rhythm, S1 normal heart sound and S2 normal heart sound Rate: tachycardic GI normal to inspection, nondistended, normoactive bowel sounds, soft to palpation and non-tender Back/Spine Back/Spine Narrative: Surgical wound to lower back dry and intact. Patient slow-moving when changing positions but able to move all 4 extremities and reposition self. Extremity normal to inspection, full ROM, normal capillary refill and no clubbing, cyanosis or edema Peripheral Pulses: Yes pulses 2+ throughout Skin no rashes or lesions noted, skin turgor normal and no jaundice Wound Narrative: Surgical incision to lower back, dressing dry and intact. Incision not visualized at this time. Neuro oriented x3, moves all extremities, no focal motor deficits and no sensory deficits noted Psych mental status grossly normal, thought process normal, cooperative, affect normal and speech normal Assessment & Plan Assessment/Plan (1) Hypertension: QUALIFIERS: Hypertension type: primary hypertension Qualified Code(s): I10 - Essential (primary) hypertension (2) Spinal stenosis at L4-L5 level: PLAN: 1. Spinal stenosis at L4-L5 level, post spinal decompression -Surgery 06/11/2021 -Graduated pain medication regimen ordered per Dr. Cook -PT to eval and treat 2. Hypertension -Stable -Continue home medication regimen -Vital signs per protocol, trend BP 3. Obstructive sleep apnea -Patient currently wearing CPAP while napping, home unit at bedside. -Oxygen saturations stable, currently 94% 4. Depression -Continue home medication regimen 5. Familial combined hyperlipidemia -Continue pravastatin DVT prophylaxis-SCDs This patient was seen by BASIL Irvin under the supervision of Dr. Nicholson. Documented by User: Dr. Nadia Nicholson MD 06/11/21 17:25 Addendum Addendum: This patient was seen in conjunction with Sarai Nation. I have independently interviewed and examined the patient and reviewed pertinent historical, laboratory, and other data. I have reviewed her note and concur with her documentation 75-year-old male with chronic back pain that comes in for elective laminectomy. We are consulted for postop medical management. Patient has chronic back pain that radiates to his left leg. His pain is worse with walking and improves with sitting. He had been getting back injections Dr. Mello. He was seen in the immediate postop.. He denied any new complaints Physical Exam: Gen: Obese, comfortable, resting with a CPAP,, not pale, not jaundiced CVS:HS I +II, regular, no murmurs RESP: Diminished at lung bases GI: BS present and normal, soft, nontender, no palpable organs EXT:No edema ASSESSMENT: 1. POD #0, status post complete posterior L3-L4, L4-L5 decompression 2. Hypertension 3. Hyperlipidemia 4. Anxiety/depression Plan: Continue with pain control per Neurosurgery Continue on lisinopril, hydrochlorothiazide and amlodipine as well as pravastatin Continue antidepressants Repeat blood work in am Visit Charges Inpatient E&M: 12041 Init Hosp L2
[2021-06-11] MEDS: oxyCODONE 5 MG Tablet PO ×2 (18:07→23:20)
[2021-06-11] MEDS: diazePAM 5 MG Tablet PO (19:19)
[2021-06-11] MEDS: Senna/Docusate Sodium 1 Tablet 2 TABLET PO (21:33)
[2021-06-11] MEDS: Famotidine 20 MG Tablet PO (21:33)
[2021-06-11] MEDS: hydroCHLOROthiazide 25 MG Tablet PO (21:34)
[2021-06-11] MEDS: Pravastatin 20 MG Tablet PO (21:35)
[2021-06-12] VITALS (9 sets, daily range): BP systolic 108–154; BP diastolic 61–87; PULSE 68–99; RESP 16–18; TEMP 36.3–37.2; O2SAT 94–100
[2021-06-12] MEDS: oxyCODONE 5 MG Tablet PO ×4 (04:06→23:11)
[2021-06-12 06:58] LABS: Absolute Lymphocyte Count 1.33 X10^3/uL (0.83-4.51); Absolute Neutrophil Count 15.3 X10^3/uL (2.0-7.7); Basophil# 0.02 X10^3/uL; Basophil% 0.1 % (0-1); Hematocrit 35.7 % (40-54); Hemoglobin 11.7 g/dL (13.0-16.5); Lymphocyte # 1.33 X10^3/ul (0.83-4.51); Lymphocyte % 7.3 % (19-41); Mean Corp Hgb Conc 32.8 g/dL (32-36); Mean Corpuscular Hgb 32.2 pg (27.0-32.0); Mean Corpuscular Volume 98.3 fL (80-94); Mean Platelet Vol. 10.9 fl (6.2-12.0); Monocyte% 7.7 % (0-10); NRBC Flagged by Analyzer 0 % (0-5); Neutrophil % 84.2 % (47-70); Platelet Count 203 K/mm3 (150-450); RBC Distribution Width CV 11.6 % (11.6-14.6); Red Blood Count 3.63 M/mm3 (4.6-6.2); White Blood Count 18.2 K/mm3 (4.4-11.0)
[2021-06-12 07:19] LABS: Anion Gap 5 (5-15); BUN 20 mg/dL (7-18); BUN/Creat Ratio 12.5 RATIO (10-20); Calcium,Total 8.1 mg/dL (8.5-10.1); Chloride 105 mmol/L (98-107); EST Glomerular Filtration Rate 45 mL/min (>60); Est Glom Filt Rate - Afr Amer 55 mL/min (>60); Estimated Creatinine Clearance 41.12 ml/min; Glucose 111 mg/dL (74-106); Potassium 4.5 mmol/L (3.5-5.1); Sodium Level 138 mmol/L (136-145)
[2021-06-12] MEDS: buPROPion (XL) 150 MG TABLET.XL PO (09:34)
[2021-06-12] MEDS: Gabapentin 100 MG Capsule PO (09:34)
[2021-06-12] MEDS: Famotidine 20 MG Tablet PO ×2 (09:35→20:46)
[2021-06-12] MEDS: Senna/Docusate Sodium 1 Tablet 2 TABLET PO ×2 (09:35→20:46)
[2021-06-12] MEDS: DULoxetine Hcl 60 MG Capsule PO (09:35)
[2021-06-12] MEDS: Lisinopril 10 MG Tablet PO (09:35)
[2021-06-12] MEDS: amLODIPine 5 MG Tablet PO (09:35)
[2021-06-12] MEDS: Sertraline 50 MG Tablet PO (09:38)
--- NOTE | 2021-06-12 11:45 | PCM.PN.HOSP ---
Subjective Subjective Patient was seen and examined. No new complains. Sitting up in a chair. He has been moving around. Pain is fairly controlled. Objective Data Objective Data Vital Signs: Vital Signs Temp Pulse Resp BP Pulse Ox 97.3 F L 68 18 145/74 H 94 06/12/21 08:00 06/12/21 08:00 06/12/21 09:00 06/12/21 08:00 06/12/21 08:05 Oxygen Flow Rate (L/min) 6 Oxygen Delivery Method Room Air Weight: 121.2 kg Body Mass Index (BMI) 39.4 Intake & Output: Intake and Output for Last 24 Hours 06/10/21 06/11/21 06/12/21 23:59 23:59 23:59 Intake Total 4682.50 / 4682.50 970.17 / 970.17 Output Total 985 / 985 1230 / 1230 Balance 3697.50 / 3697.50 -259.83 / -259.83 Lab / Micro Data Result Diagrams: 06/12/21 06:06 06/12/21 06:06 Labs: Laboratory Results - last 24 hr 06/09/21 14:10: Hepatitis A Ab Total Negative 06/12/21 06:06: WBC 18.2 H, RBC 3.63 L, Hgb 11.7 L, Hct 35.7 L, MCV 98.3 H, MCH 32.2 H, MCHC 32.8, RDW Std Deviation 42.0, RDW Coeff of Karma 11.6, Plt Count 203, MPV 10.9, Immature Gran % (Auto) 0.700, Neut % (Auto) 84.2 H, Lymph % (Auto) 7.3 L, Corson % (Auto) 7.7, Eos % (Auto) 0.0, Baso % (Auto) 0.1, Absolute Neuts (auto) 15.3 H, Absolute Lymphs (auto) 1.33, Nucleated RBC % 0 06/12/21 06:06: Sodium 138, Potassium 4.5, Chloride 105, Carbon Dioxide 28.0, Anion Gap 5, BUN 20 H, Creatinine 1.60 H, Estim Creat Clear Calc 41.12, Est GFR (MDRD) Af Amer 55 L, Est GFR (MDRD) Non-Af 45 L, BUN/Creatinine Ratio 12.5, Glucose 111 H, Calcium 8.1 L Micro: Microbiology 06/09/21 14:10 Swab (Method) Nasal Screen MRSA/MSSA - Final Radiography Diagnostic Testing: Radiology Impression Spine X-Ray 06/11/21 07:30 IMPRESSION: The localizer is seen along the posterior to the L4-L5 disc space. Electronically Signed: Suman Evans MD at 12:20 EDT , Service support , Physical Exam Const alert, oriented x3 and no apparent distress HEENT normocephalic and head/scalp atraumatic Eyes conjunctivae normal and no scleral icterus Neck full ROM, supple and no JVD General: trachea midline Chest inspection of chest normal and palpation of chest normal Resp normal respiratory effort, normal air movement and clear to auscultation bilaterally Cardio regular rate, regular rhythm, S1 normal heart sound and S2 normal heart sound Rate: tachycardic GI normal to inspection, nondistended, normoactive bowel sounds, soft to palpation and non-tender Back/Spine Back/Spine Narrative: Surgical wound to lower back dry and intact. Patient slow-moving when changing positions but able to move all 4 extremities and reposition self. Extremity normal to inspection, full ROM, normal capillary refill and no clubbing, cyanosis or edema Skin no rashes or lesions noted, skin turgor normal and no jaundice Wound Narrative: Surgical incision to lower back, dressing dry and intact. Incision not visualized at this time. Neuro oriented x3, moves all extremities, no focal motor deficits and no sensory deficits noted Psych mental status grossly normal, thought process normal, cooperative, affect normal and speech normal Assessment & Plan Assessment/Plan (1) Hypertension: QUALIFIERS: Hypertension type: primary hypertension Qualified Code(s): I10 - Essential (primary) hypertension (2) Spinal stenosis at L4-L5 level: PLAN: 1. POD #0, status post complete posterior L3-L4, L4-L5 decompression Pain is fairly controlled, continue same 2. Leukocytosis, likely reactive and also secondary to steroids, no signs of infection 3. Hypertension, controlled, continue amlodipine, hydrochlorothiazide, lisinopril 4. Hyperlipidemia, continue statins 5. Anxiety/depression, stable, continue on Wellbutrin, BuSpar, Valium, Zoloft Charges/Coding Visit Charges Inpatient E&M: 04497 Subs Hosp L2
--- NOTE | 2021-06-12 12:47 | PCM.PN.ORT ---
Objective Data Objective Data Vital Signs: Vital Signs Temp Pulse Resp BP Pulse Ox 97.3 F L 68 18 145/74 H 94 06/12/21 08:00 06/12/21 08:00 06/12/21 09:00 06/12/21 08:00 06/12/21 08:05 Oxygen Flow Rate (L/min) 6 Oxygen Delivery Method Room Air Weight: 267 lb 3.204 oz Body Mass Index (BMI) 39.4 Intake & Output: Intake and Output for Last 24 Hours 06/10/21 06/11/21 06/12/21 23:59 23:59 23:59 Intake Total 4682.50 / 4682.50 1820.17 / 1820.17 Output Total 985 / 985 1230 / 1230 Balance 3697.50 / 3697.50 590.17 / 590.17 Lab / Micro Data Result Diagrams: 06/12/21 06:06 06/12/21 06:06 Labs: Laboratory Results - last 24 hr 06/12/21 06:06: WBC 18.2 H, RBC 3.63 L, Hgb 11.7 L, Hct 35.7 L, MCV 98.3 H, MCH 32.2 H, MCHC 32.8, RDW Std Deviation 42.0, RDW Coeff of Karma 11.6, Plt Count 203, MPV 10.9, Immature Gran % (Auto) 0.700, Neut % (Auto) 84.2 H, Lymph % (Auto) 7.3 L, Sharp % (Auto) 7.7, Eos % (Auto) 0.0, Baso % (Auto) 0.1, Absolute Neuts (auto) 15.3 H, Absolute Lymphs (auto) 1.33, Nucleated RBC % 0 06/12/21 06:06: Sodium 138, Potassium 4.5, Chloride 105, Carbon Dioxide 28.0, Anion Gap 5, BUN 20 H, Creatinine 1.60 H, Estim Creat Clear Calc 41.12, Est GFR (MDRD) Af Amer 55 L, Est GFR (MDRD) Non-Af 45 L, BUN/Creatinine Ratio 12.5, Glucose 111 H, Calcium 8.1 L Micro: Microbiology 06/09/21 14:10 Swab (Method) Nasal Screen MRSA/MSSA - Final Procedure Criteria Elective Risks - COVID COVID Risk Discussion: Postop day #1: Patient is seen on rounds. He has been walking today and already feels that his legs feel much better than they did prior to surgery. His back of course hurts quite a bit. I change his dressing and removed his drain as he is got very little drainage now. Incision is dry and healing well. I anticipate he will feel up to going home tomorrow.
[2021-06-12] MEDS: diazePAM 5 MG Tablet PO (14:24)
--- NOTE | 2021-06-12 15:06 | CASEMGMT ---
ANAYELI RAMIREZ Assessment: Face to Face with pt for initial transition planning/care coordination assessment. RN JAMES introduced self and role at [facility], pt voices understanding and consents to assessment. Pt is A/O x4 and answers all questions appropriately at this time. Pt lying in bed in no distress. Care providers, pharmacy, and demographics verified/updated. Admitting Dx: laminectomy PCP:Bipin Gardner INTERPRETIVE PROGRAM COORDINATOR Specialists:Joey, spine surgeon Preferred Pharmacy: [facility] Insurance: [facility], [place] Prescription Benefit: yes LW/HPOA: Pt denies LNOK: Pravin Moreno, Living Arrangements: Pt lives with in a single story house with a ramp to enter. Pt reports being I in ADL's and denies concerns at home. Transportation: Pt drives self and denies concerns with transportation. DME/HHC/SNF: Pt states he has a CPAP at home that he works with [employer] on, has grab bars in the bathroom. Pt does not have a FWW. Will place order on chart with green sheet to get signed in the morning. Pt has had previous HHC but does not remember who. Pt denies SNF stays. Pt states no concerns with going home at time of dc. Pt states no further concerns/needs. CM to follow. Advised pt to ask CM if any further question/concerns/needs arise, voices understanding. Pt Goal: Home Plan: Home
[2021-06-12] MEDS: Morphine 4 MG/ML Syringe IV (15:35)
[2021-06-12] MEDS: 0.9% Saline Lock 10 ML Syringe IV (15:36)
--- NOTE | 2021-06-12 16:08 | CASEMGMT ---
Green sheet on chart for script for FWW, needs signed by . Face sheet and fax cover sheet completed to [facility] with it. Notified charge nurse Felecia of this as well as pt nurse Eboni for handoff.
[2021-06-12] MEDS: hydroCHLOROthiazide 25 MG Tablet PO (20:21)
[2021-06-12] MEDS: Pravastatin 20 MG Tablet PO (20:46)
[2021-06-13] MEDS: diazePAM 5 MG Tablet PO (00:05)
[2021-06-13] MEDS: Zolpidem Tartrate 5 MG Tablet PO (00:05)
[2021-06-13 03:45] VITALS: BP 124/71; PULSE 97; RESP 18; TEMP 37.1; O2SAT 94
[2021-06-13 08:10] VITALS: BP 121/67; PULSE 89; RESP 20; TEMP 37.2; O2SAT 94
[2021-06-13 08:16] VITALS: PULSE 90
[2021-06-13] MEDS: Famotidine 20 MG Tablet PO (08:25)
[2021-06-13] MEDS: buPROPion (XL) 150 MG TABLET.XL PO (08:26)
[2021-06-13] MEDS: amLODIPine 5 MG Tablet PO (08:26)
[2021-06-13] MEDS: Senna/Docusate Sodium 1 Tablet 2 TABLET PO (08:26)
[2021-06-13] MEDS: Sertraline 50 MG Tablet PO (08:26)
[2021-06-13] MEDS: DULoxetine Hcl 60 MG Capsule PO (08:26)
[2021-06-13] MEDS: Gabapentin 100 MG Capsule PO (08:26)
[2021-06-13] MEDS: Lisinopril 10 MG Tablet PO (08:27)
[2021-06-13] MEDS: oxyCODONE 5 MG Tablet PO (09:32)
[2021-06-13 10:48] VITALS: O2SAT 95
--- NOTE | 2021-06-13 11:22 | PCM.PN.HOSP ---
Subjective Subjective Patient was seen and examined. His pain is fairly controlled. He has been able to move around. Denied any fever or chills. Objective Data Objective Data Vital Signs: Vital Signs Temp Pulse Resp BP Pulse Ox 99.0 F 90 20 H 121/67 H 95 06/13/21 08:10 06/13/21 08:16 06/13/21 08:10 06/13/21 08:10 06/13/21 10:48 Oxygen Flow Rate (L/min) 6 Oxygen Delivery Method Room Air Weight: 121.2 kg Body Mass Index (BMI) 39.4 Intake & Output: Intake and Output for Last 24 Hours 06/11/21 06/12/21 06/13/21 23:59 23:59 23:59 Intake Total 4682.50 / 4682.50 2970.17 / 2970.17 300 / 300 Output Total 985 / 985 1230 / 1230 Balance 3697.50 / 3697.50 1740.17 / 1740.17 300 / 300 Lab / Micro Data Result Diagrams: 06/12/21 06:06 06/12/21 06:06 Micro: Microbiology 06/09/21 14:10 Swab (Method) Nasal Screen MRSA/MSSA - Final Physical Exam Narrative Physical exam: General: Alert, Oriented x3, Cooperative, No apparent distress, Well developed, obese HEENT: Atraumatic Oral: Moist Mucosa Neck: Supple Lungs: Clear to auscultation Cardiovascular: HS I+II, regular, no murmurs Abdomen: Bowel Sounds Present, Soft, Non Tender Extremities: No edema Assessment & Plan Assessment/Plan (1) Hypertension: QUALIFIERS: Hypertension type: primary hypertension Qualified Code(s): I10 - Essential (primary) hypertension (2) Spinal stenosis at L4-L5 level: (3) MIKEY (obstructive sleep apnea): (4) Obesity: QUALIFIERS: Obesity type: with alveolar hypoventilation Obesity classification: adult class 2 (BMI 35 - 39.9) Serious obesity comorbidity presence: with serious comorbidity Body mass index: BMI 39.0-39.9 Qualified Code(s): E66.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 POD #2, status post complete posterior L3-L4, L4-L5 decompression Pain is fairly controlled, continue per neurosurgery recommendations 2. Leukocytosis, likely reactive 3. Hypertension, controlled, continue amlodipine, hydrochlorothiazide, lisinopril 4. Hyperlipidemia, continue statins 5. Anxiety/depression, stable, continue on Wellbutrin, BuSpar, Valium, Zoloft Ok to discharge from neurosurgery point of view Charges/Coding Visit Charges Inpatient E&M: 00351 Subs Hosp L2
[2021-06-13 14:02] VITALS: BP 136/75; PULSE 85; RESP 20; TEMP 37.2; O2SAT 95
--- NOTE | 2021-06-13 14:03 | PCM.DC ---
Discharge Instructions Diet Discharge Diet: No restrictions Activity Discharge Activity: May Not Drive and Use Walker May shower in (days): 3 May resume sexual activity in: 4-6 weeks Weight Bearing Status: Full weight bearing Dressing / Incision Call your doctor if your incision/area has: Continuous Slow Oozing and Increased Pain/ Swelling Call your doctor if you observe: Uncontrolled pain Remove Dressing in: 2 days Cleanse incision/area with: Soap & Water Follow Up Care Please Follow Up With: dr lazaro When: has appointment Test Results: Test results from this visit will be discussed in further detail at your follow-up appointment, if applicable. Discharge Plan Admission Admit Date/Time: 06/12/21 13:31 Attending Provider: Uday Lazaro Primary Care Provider: Bipin Gardner NP Consulting Providers: Nadia Nicholson Discharge Orders/Prescriptions Prescriptions: No Action baclofen 5 mg tablet 5 mg PO DAILY PRN (Reason: Pain) RF: 0 lisinopril 20 MG tablet 10 mg PO DAILY RF: 0 amlodipine 5 MG tablet 5 mg PO DAILY RF: 0 gabapentin 100 MG capsule 100 mg PO DAILY RF: 0 sulindac 200 MG tablet 200 mg PO DAILY RF: 0 pravastatin 20 MG tablet 20 mg PO QHS RF: 0 duloxetine 60 MG capsule,delayed release(DR/EC) 60 mg PO DAILY RF: 0 buspirone 5 mg Tablet 5 mg PO TID PRN (Reason: Anxiety) RF: 0 hydrochlorothiazide 25 mg Tablet 25 mg PO QHS RF: 0 sertraline [Zoloft] 50 mg Tablet 50 mg PO DAILY RF: 0 bupropion HCl [Wellbutrin XL] 150 mg Tablet Extended Release 24 Hr 150 mg PO DAILY RF: 0 hydrocodone-acetaminophen 10-325 mg tablet 1 tab PO Q6H PRN (Reason: pain) 10 Days Qty: 40 RF: 0 Other Ambulatory Orders: 12 Lead EKG (Routine) Timeframe: [id number] Location: None Selected Ordered By: Dr. Uday Lazaro Referrals / Follow Up: Bipin Gardner NP, PATIENT FINANCIAL SERVICES COORDINATOR-C [Primary Care Provider] - Disposition Disposition (needs filled in before D/C Order can be placed): Home, Self Care
--- NOTE | 2021-06-13 15:21 | NURSING ---
Called placed to Dr. Cook to clarify home med list, said to continue meds.
--- NOTE | 2021-06-13 15:28 | NURSING ---
Nurse informed he is discharged now, but need to wait for walker to be delivered. states they have a walker at home, and she notified Dr. Cook about this.
--- NOTE | 2021-06-13 15:50 | CASEMGMT ---
ANAYELI RAMIREZ in to complete form with patient. ANAYELI RAMIREZ explained form with patient, patient voiced understanding. Patient signed form and filed in chart. Patient provided with copy of signed form. Patient had no further questions or concerns at this time.
== END 2021-06-13 15:52 | disposition home or self-care (01) ==
LOC: SDC 13:54 → MS3 13:54
PROVIDERS: Anesthesiology; Nurse Practitioner Family; Admitting Provider Orthopaedic Surgery; PCP Nurse Practitioner Primary Care; Referring Provider Orthopaedic Surgery; Visit Provider Orthopaedic Surgery
PROC: (CPT 63030; principal; 2021-06-11 07:00)
DX: M48.061 Spinal stenosis, lumbar region without neurogenic claudication (principal); I10 Essential (primary) hypertension; F41.9 Anxiety disorder, unspecified; M19.90 Unspecified osteoarthritis, unspecified site; F32.9 Major depressive disorder, single episode, unspecified; D72.829 Elevated white blood cell count, unspecified; G25.81 Restless legs syndrome; E78.49 Other hyperlipidemia; G89.29 Other chronic pain; E66.2 Morbid (severe) obesity with alveolar hypoventilation; Z85.820 Personal history of malignant melanoma of skin; Z79.82 Long term (current) use of aspirin; Z79.899 Other long term (current) drug therapy; Z86.2 Personal history of diseases of the blood and blood-forming organs and certain disorders involving the immune mechanism; Z68.39 Body mass index [BMI] 39.0-39.9, adult
CPT/HCPCS: 63047; 63048; 36415; 72020; 80048; 80076; 82962; 83735; 85025; 85610; 85730; 86703; 86706; 86708; 86803; 87077; 87081; 88304; 88311; 93005; 96361; 96365; 96366; 96375; 97162; 97530; 99218; 99251; J7120; A4216; G0378; G0463; J2405; J3490

== ENCOUNTER 2021-09-08 08:00 | Outpatient (RCR) | payer MEDICARE, OTHER, SELFPAY ==
--- NOTE | 2021-08-06 10:01 | HP.PTEVAL ---
Patient's Visit Information ROSS BOLIVAR is a 75 year old M referred to Physical Therapy by Dr. Uday Cook DO with a diagnosis of P/O LUMBAR DECOMPRESSION L3-4, L4-5.. Date of Evaluation: 08/06/21 Physical Therapist: Gladis Sow PT, Cert MDT - Visit Plan Frequency: 2x /Week Duration: 4-6 Weeks Plan: START WITH FOCUS ON CORE STABILITY WITH A NEUTRAL SPINE AND LE FLEXABILITY. POSTURE CORRECTION/STRENGTHENING, INSTRUCTION IN APPROPRIATE BODY MECHANICS AND ACTIVITY MODIFICATIONS. DLS WITH A NEUTRAL SPINE TOLERATED. GRAYSON LE ROM, STRETCHING AND STRENGTHENING. HEP INSTRUCTION. - Subjective Work/Leisure: [employer]. 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 Disability: NO. Present symptoms: GRAYSON LOW BACK, HIP AND KNEE PAIN. INTERMITTENT SHOCKING PAINS BELOW THE KNEES AND SOMETIMES INTO THE TOES. Present since: CHRONIC. Pain Scale: WORST 10+/10, LEAST 0/10. Currently: 0/10. Commenced as a result of: ARTHRITIS. Symptoms at onset: BACK PAIN. Worse: WALKING, STANDING, LIFTING. Better: SITTING LYING DOWN. Disturbed sleep: NO. Previous history/Previous treatment: STATES HE HAS BEEN IN PAIN MGMT FOR YEARS WITH DR. BORDEN GETTING [facility] AND THEY STOPPED WORKING AND HE WAS REFERRED TO DR. COOK. PATIENT REPORTS HE TRIED A LITTLE BIT OF WATER THERAPY IN THE PAST WITH AN ORDER FROM DR. CORNEJO BUT DIDN'T HELP. USE TO SEE A CHIROPRACTOR A LOT AND IT HELPED FOR AWHILE BUT HASN'T BEEN IN A LONG TIME. Treatment this episode: P/O LUMBAR DECOMPRESSION L3-4, L4-5 06/11/21 - DR. COOK. Coughing/sneezing/straining: NEGATIVE. Gait: TIME AND DISTANCE LIMITED ON ALL SURFACES BUT MORE SO ON UNEVEN GROUND. Difficulty initiating urination: NO. Accidents: FELL DOWN [facility] ABOUT 2 YEARS AGO AND FLARED UP BACK CONDITION. Unexplained weight loss: NO. Imaging: STUDY: X-RAY - LUMBAR SPINE. REASON FOR EXAM: Male, 75 years old. Back pain Low Back Pain -- AP. Lateral. TECHNIQUE: XR Spine Lumbar 2 or 3 Views. COMPARISON: 06.03.20. . FINDINGS: Normal lumbar lordosis. There is no substantial scoliosis. Grade 1. anterolisthesis of L4 on L5. This is stable. There is multilevel endplate. spondylosis of the lumbar vertebrae. There is multi-level degenerative. disc disease with multi-level disc space narrowing. There are. atherosclerotic vascular calcifications. The soft tissue structures are unremarkable. . RAD/Lumbar Spine 2 or 3 Views. IMPRESSION: Degenerative changes of the spine, as detailed above. . Electronically Signed: Ozzy Daugherty MD. at 16:59 EDT. PMH/Recent major surgery: HTN, DEPRESSION. OTHER: PATIENT REPORTS HE IS BACK TO [facility] SINCE THE SURGERY. HE REPORTS HE IS NO BETTER AND NO WORSE SINCE BACK SURGERY. - Objective Sitting/Standing Posture: POOR. STANDS WITH INCREASED TRUNK FLEX, HIP FLEXION AND KNEE FLEX. Lateral shift: LEFT. Active Correction of posture: NE. Other Observations: INDEP GAIT INTO PT WITHOUT AN ASSISTIVE DEVICES OR LOB BUT WITH BACK, HIP AND KNEE FLEXION. FAIR CADANCE. PATIENT WITH INCREASED DIFFICULTY ADVANCING GRAYSON LE'S AFTER STANDING STILL FOR ABOUT 3 MINTUES AND HAS DISTANCE INCREASES WITH GAIT STARTING AT ABOUT 200 FEET. Motor deficit: GRAYSON LE STRENGTH GROSSLY 5/5 WITH MMT'ING EXCEPT GRAYSON HIPS 4/5 INTO ABD, IR AND ER. Sensory deficit: GRAYSON LE LIGHT TOUCH SENSATION IS GROSSLY INTACT AND SYMMETRICAL BUT FEET NT. ROM deficit: TIGHT GRAYSON HIP EXTERNAL ROTATORS, HIP FLEXORS, HS'S AND ACHILLES. Dural Signs: NEGATIVE GRAYSON LE DURAL SIGNS. Lumbar mvmt loss: flex - MIN. ext - SABAS. R SG - SABAS. L SG - SABAS. Core strength: POOR. TREATMENT: NEUROMUSCULAR REEDUCATION - RETRAINING OF MVMT AND POSTURE FOR SITTING, LYING AND STANDING ACTIVITIES. - Balance/Special Test Scores Oswestry Low Back Score: 17 - Goals Goal 1:: DECREASE C/O LOW BACK AND GRAYSON LE SX'S. Goal Time Frame: 4-6 Weeks Goal 2:: IMPROVE LIFTING, WALKING, STANDING, SOCIAL LIFE AND HOMEMAKING FUNCTION Goal Time Frame: 4-6 Weeks Goal 3:: INSTRUCT IN PROPHYLAXIS Goal Time Frame: 4-6 Weeks - Anticipated Interventions Patient/Client Instruction: Educate patient on: Condition, Plan of Care, Risk Factors For the Purpose of:: To improve self management Therapeutic Exercise to Include: Strength training, Body mechanics, Postural training, Flexibilty training, Gait and locomotor training, Neuromotor development, In an aquatic setting, Dynamic Lumbar Stabilization For the Purpose of:: To decrease pain, To improve muscle performance and motor function, To increase tolerance to activity/condition/position, To improve ability of physical actions for home/community/work/leisure, To improve gait and locomotor functions Thank you for the opportunity to evaluate your patient. For Medicare and Medicare HMO plans, please review the plan of care and approve it. It will need to be FAXED BACK to us at [phone] for Medicare purposes. For Medicare only, by signing this I certify the plan of care. Please let me know if there are questions or concerns regarding this plan of care. Physician Signature: Date:
--- NOTE | 2021-09-08 08:42 | HP.PTREVAL ---
Dr. Uday Cook, DO, It has been my pleasure to treat ROSS BOLIVAR over the last 8 visits for P/O LUMBAR DECOMPRESSION L3-4, L4-5.. Please see the progress note below for an update on the physical therapy plan of care! Subjective: PATIENT PRESENTS TO PT WITH SOME LEFT KNEE PAIN BUT REPORTS HE ISN'T GETTING SHARP PAINS IN HIS RIGHT HIP AND DOWN HIS LEG TODAY. PATIENT RELATES HIS IMPROVEMENT TODAY SOLELY TO THE WEATHER. PATIENT REPORTS HE WAS IN A LOT OF PAIN ON Tuesday WAS REAL BAD. PATIENT REPORTS THAT LAST TUESDAY AND TUESDAY HE COULD BARELY WALK BECAUSE OF SEVERE PAIN WHEN HE PUT WEIGHT ON HIS RIGHT LE. STATES HE HAD TO FURNITURE WALK AND USE THE WALL JUST TO TAKE SOME STEPS. OVER-ALL PATIENT REPORTS HE IS NO BETTER AND NO WORSE SINCE STARTING PT. PATIENT REPORTS THAT ALTHOUGH HE DOESN'T HAVE ANY PAIN RIGHT NOW HE HAD SEVERE PAIN TUESDAY. PATIENT REPORTS THE EXERCISE DOES NOT MAKE HIM WORSE AND HE PLANS TO KEEP DOING HIS HOME EX'S. PATIENT REPORTS HE DOES NOT SEE ANY PURPOSE IN CONTINUING TO COME TO PT AND WANTS TO BE DISCHARGED. PATIENT REPORTS ROLLING OVER IN BED REALLY CAUSES A LOT OF RIGHT HIP/LEG PAIN. REPORTS HE WAS SUPPOSED TO FOLLOW UP WITH DR. COOK ABOUT 4 WEEKS AGO BUT DIDN'T. Objective/Function: PATIENT WAS SEEN TODAY FOR RE-ASSESSMENT OF PROGRESS TOWARD THE SET PT GOALS AND THE NEED FOR FURTHER PHYSICAL THERAPY VS READINESS FOR DISCHARGE. PATIENT DEMONSTRATES IMPROVED GAIT TODAY, AND IMPROVED HIP STRENGTH. HE DENIES ANY SIGNIFICANT IMPROVEMENT FROM SURGERY OR PT. THIS PT ENCOURAGED PATIENT TO FOLLWO UP WITH DR. COOK. UPON EXAM TODAY: Sitting/Standing Posture: POOR. STANDS WITH INCREASED TRUNK FLEX, HIP FLEXION AND KNEE FLEX. Lateral shift: LEFT. Active Correction of posture: NE. Other Observations: INDEP GAIT INTO PT WITHOUT AN ASSISTIVE DEVICES OR LOB BUT WITH BACK, HIP AND KNEE FLEXION. FAIR CADANCE. Motor deficit: GRAYSON LE STRENGTH GROSSLY 5/5. Sensory deficit: GRAYSON LE LIGHT TOUCH SENSATION IS GROSSLY INTACT AND SYMMETRICAL BUT FEET NT. ROM deficit: TIGHT GRAYSON HIP EXTERNAL ROTATORS, HIP FLEXORS, HS'S AND ACHILLES. Dural Signs: NEGATIVE GRAYSON LE DURAL SIGNS. Lumbar mvmt loss: flex - MIN. ext - SABAS. R SG - SABAS. L SG - SABAS. PATIENT C/O LB AND GRAYSON HIP PAIN WITH LUMBAR ROM TESTING ALL PLANES. Core strength: POOR Plan Plan: D/C AT PATIENTS REQUEST TO HEP. PATIENT AGREEABLE TO FOLLOWING UP WITH DR. COOK NOW. Balance/Gait/Functional tests - Balance/Special Test Scores Oswestry Low Back Score: 17 Goals Goal 1:: DECREASE C/O LOW BACK AND GRAYSON LE SX'S. Goal Time Frame: 4-6 Weeks Goal Progress: Not Progressing Goal 2:: IMPROVE LIFTING, WALKING, STANDING, SOCIAL LIFE AND HOMEMAKING FUNCTION Goal Time Frame: 4-6 Weeks Goal Progress: Not Progressing Goal 3:: INSTRUCT IN PROPHYLAXIS Goal Time Frame: 4-6 Weeks Goal Progress: Not Progressing Anticipated Interventions Patient/Client Instruction: Educate patient on: Condition, Plan of Care, Risk Factors For the Purpose of:: To improve self management Therapeutic Exercise to Include: Strength training, Body mechanics, Postural training, Flexibilty training, Gait and locomotor training, Neuromotor development, In an aquatic setting, Dynamic Lumbar Stabilization For the Purpose of:: To decrease pain, To improve muscle performance and motor function, To increase tolerance to activity/condition/position, To improve ability of physical actions for home/community/work/leisure, To improve gait and locomotor functions Please do not hesitate to contact me at [phone] by phone or if you have questions or concerns regarding this new plan of care! Sincerely, Gladis oSw, PT, Cert MDT
== END 2021-09-08 19:00 | disposition home or self-care (01) ==
LOC: PT 08:00
PROVIDERS: PCP Nurse Practitioner Primary Care; Referring Provider Orthopaedic Surgery; Visit Provider Orthopaedic Surgery
DX: Z98.890 Other specified postprocedural states (principal)
CPT/HCPCS: 97110; 97112; 97162; 97164; 97530

== ENCOUNTER 2022-01-29 16:10 | Outpatient (CLI) | payer MEDICARE, OTHER, SELFPAY ==
--- NOTE | 2022-01-29 16:11 | MRI_ITS ---
EXAM: MR LUMBAR SPINE WITHOUT AND WITH INTRAVENOUS CONTRAST CLINICAL INDICATION: pain TECHNIQUE: Multiplanar and multisequence MR images of the lumbar spine without and with intravenous contrast. This report was created using Twones report Exhbit technology. CONTRAST: IV 23CC DOATERM COMPARISON: May 19 2021 1:04pm FINDINGS: VERTEBRAE: See below. SPINAL CORD: Unremarkable. Normal position and signal intensity of the conus medullaris. SOFT TISSUES: Unremarkable. DISCS/SPINAL CANAL/NEURAL FORAMINA: L1-L2: L1-2: Loss of intervertebral disc height. There is endplate spondylosis of the vertebral body. Normal central canal and intervertebral neuroforamina. There is bilateral facet arthropathy. There is bilateral ligamentum flavum thickening. L2-L3: L2-3: Loss of intervertebral disc height. There is endplate spondylosis of the vertebral body. Normal central canal and intervertebral neuroforamina. There is bilateral facet arthropathy. There is bilateral ligamentum flavum thickening. L3-L4: L3-4: Loss of intervertebral disc height. There is endplate spondylosis of the vertebral body. Bilateral neural foraminal narrowing. Severe compression of exiting left L3 nerve root. Severe transverse narrowing of the spinal canal. There is bilateral facet arthropathy. There is bilateral ligamentum flavum thickening. Narrowing of the lateral recess. L4-L5: L4-5: Loss of intervertebral disc height. There is endplate spondylosis of the vertebral body. Laminectomy changes. Moderate bilateral neural foraminal stenosis. There is bilateral facet arthropathy. Small recurrent disc herniation. No spinal stenosis. L5-S1: Loss of intervertebral disc height. There is endplate spondylosis of the vertebral body. Normal central canal and intervertebral neuroforamina. There is bilateral facet arthropathy. MRI/Spine Lumbar W/WO Contrast IMPRESSION: 1. L3-4: Loss of intervertebral disc height. There is endplate spondylosis of the vertebral body. Bilateral neural foraminal narrowing. Severe compression of exiting left L3 nerve root. Severe transverse narrowing of the spinal canal. There is bilateral facet arthropathy. There is bilateral ligamentum flavum thickening. Narrowing of the lateral recess. 2. L4-5: Loss of intervertebral disc height. There is endplate spondylosis of the vertebral body. Laminectomy changes. Moderate bilateral neural foraminal stenosis. There is bilateral facet arthropathy. Small recurrent disc herniation. No spinal stenosis. Electronically Signed: Ozzy Daugherty MD at 9:59 EDT ,
[2022-01-29 16:50] LABS: EGFR FINGERSTICK > 60.0000 mL/min (>60)
== END 2022-01-29 23:59 | disposition home or self-care (01) ==
LOC: MRI 16:11
PROVIDERS: PCP Internal Medicine; Referring Provider Orthopaedic Surgery; Visit Provider Orthopaedic Surgery
DX: M48.061 Spinal stenosis, lumbar region without neurogenic claudication (principal); M54.50 Low back pain, unspecified
CPT/HCPCS: 72158; A9575

== ENCOUNTER → 2024-05-01 | Outpatient (CLI) | payer MEDICARE, OTHER, SELFPAY ==
--- NOTE | 2024-05-01 15:55 | RAD_ITS ---
INDICATION: PAIN EXAMINATION/TECHNIQUE: X-RAY - LEFT XR Knee Complete 4 Views or More 8 VIEWS COMPARISON: Prior study dated: September 23, 2015 FINDINGS: SOFT TISSUES: No soft tissue swelling or gas. No radiopaque foreign body. BONES/JOINTS: No acute fracture or subluxation.. Normal alignment. There are tricompartmental degenerative changes, most pronounced within the medial compartment. No sclerotic or destructive changes observed. RAD/Knee 4 or More Views IMPRESSION: Degenerative changes. Electronically Signed: Kimberly Reid MD at 8:43 EDT ,
--- NOTE | 2024-05-01 15:55 | RAD_ITS ---
INDICATION: BILATERAL KNEE OA EXAMINATION/TECHNIQUE: X-RAY - RIGHT XR Knee Complete 4 VIEWS COMPARISON: September 23, 2015 FINDINGS: SOFT TISSUES: No soft tissue swelling or gas. No radiopaque foreign body. BONES/JOINTS: No acute fracture or subluxation.. There are moderate degenerative changes of the medial compartment and the patellofemoral articulation. There is lateral patellar tilt. No sclerotic or destructive changes observed. RAD/Knee 4 or More Views IMPRESSION: Degenerative changes. Lateral patellar tilt. Electronically Signed: Kimberly Reid MD at 11:29 EDT ,
== END | disposition home or self-care (01) ==
LOC: RAD 15:18
PROVIDERS: PCP Internal Medicine; Referring Provider Anesthesiology Pain Medicine; Visit Provider Anesthesiology Pain Medicine
DX: M17.0 Bilateral primary osteoarthritis of knee (principal)
CPT/HCPCS: 73564